=== PATIENT | male | born 1945 | race Caucasian/White ===

== ENCOUNTER 2019-10-18 11:27 | Emergency (ER) | payer BC, MEDICARE ==
[~2019-10-18] VITALS: Ht 180 cm; Wt 127.0 kg
[2019-10-18] MEDS ORDERED: LIDOCAINE/EPI 2% 1:100,00 (XYLOCAINE) 20 ML VIAL ONE (11:35)
[2019-10-18] MEDS ORDERED: oxyCODONE/APAP 5/325MG (PERCOCET 5) TABLET PO ONE (11:45)
[2019-10-18] MEDS ORDERED: TETANUS,DIPTH,PERTUSS P/F (BOOSTRIX) 0.5 ML VIAL IM ONE (11:45)
--- NOTE | 2019-10-18 11:53 | ED Upper Extremity ---
General Chief Complaint: Laceration Stated Complaint: SEVERED FINGERS Nursing Triage Note: PT CUT HIS RIGHT 2ND AND 3RD TIPS OF HIS FINGERS ON A BAND SAW. FINGERS ARE STILL INTACT AND BLEEDING CONTROLLED. Nursing Sepsis Screen: No Definite Risk History of Present Illness Date Seen by Provider: Oct 18, 2019 Time Seen by Provider: 11:48 Initial Comments Patient presenting to emergency department for evaluation of index and middle right hand finger injury status post cutting himself with a bandsaw blade. He was doing some woodwork trying to rounds of edges when his fingers actually got too close to the blade. His tetanus status is unclear so was updated today. He says he has some numbness to his index finger but no weakness. He says that he is healthy except for history of hypertension but no diabetes or smoking history or vascular disease history. He is uncomfortable but nontoxic with normal vital signs. Allergies and Home Medications Allergies Coded Allergies: iodine (Verified Allergy, Severe, Anaphylaxis, 10/18/19) niacin (Verified Allergy, Unknown, 10/18/19) Uncoded Allergies: NSAIDS (Allergy, Severe, Anaphylaxis, 10/18/19) Home Medications Cephalexin 500 Mg Capsule, 500 MG PO TID Prescribed by: ERUM GUERRERO on 10/18/19 1248 Hydrocodone/Acetaminophen 1 Each Tablet, 1 TAB PO Q4-6HR Prescribed by: ERUM GUERRERO on 10/18/19 1248 Patient Home Medication List Home Medication List Reviewed: Yes Review of Systems Constitutional: no symptoms reported EENTM: no symptoms reported Respiratory: no symptoms reported Cardiovascular: no symptoms reported Gastrointestinal: no symptoms reported Musculoskeletal: joint pain Skin: other (lacerations) Psychiatric/Neurological: Numbness All Other Systems Reviewed Negative Unless Noted: Yes Past Lvsicro-Mqxpbm-Brrhyw Hx Patient Social History Alcohol Use: Occasionally Uses Recreational Drug Use: No Smoking Status: Never a Smoker 2nd Hand Smoke Exposure: No Recent Foreign Travel: No Contact w/Someone Who Travel: No Recent Infectious Disease Expo: No Recent Hopitalizations: No Physical Abuse: No Sexual Abuse: No Mistreated: No Fear: No Immunizations Up To Date Tetanus Booster (TDap): Unknown Seasonal Allergies Seasonal Allergies: No Past Medical History Surgeries: Yes (HIPS BILAT, RIB BIOPSY, CYSTS REMOVED FROM SHOULDER, LITHOTRIPSY) Orthopedic Respiratory: No Cardiac: Yes Hypertension Neurological: No Genitourinary: Yes Prostate Problems Gastrointestinal: Yes Gastroesophageal Reflux Musculoskeletal: Yes Arthritis Endocrine: No HEENT: No Cancer: No Psychosocial: No Blood Disorders: No Physical Exam Vital Signs Vital Signs - First Documented 10/18/19 11:39 Temp 35.7 Pulse 62 Resp 18 B/P (MAP) 95/ Pulse Ox 99 O2 Delivery Room Air Capillary Refill : Less Than 3 Seconds Height, Weight, BMI Height: '" Weight: lbs. oz. kg; 39.00 BMI Method: General Appearance: WD/WN Neck: supple Cardiovascular: regular rate, rhythm Respiratory: no respiratory distress Hand: laceration (to tip of both index fingers) Neurologic/Tendon: normal tendon functions, sensory deficit (R index finger) Skin: warm/dry Procedures/Interventions Wound Location: Upper Extremities Other Wound Location index and middle fingers on R. Total wound length 4cm Index finger appx 1.5 cm. Small amount of debris, wound is linear goes below nail. Middle finger appx 2.5cm. Large amount of debris, wound is linear and and deeper and goes below nail as well Wound Length (cm): 4 Wound's Depth, Shape: linear, flap, sub Q Wound Explored: wound irrigated and picked out as much debris as I could find. Wound scrubbed as well Irrigated w/ Saline (ccs): 1000 Betadine Prep?: No (chlorohexidine) Anesthesia: Lidocaine w/ Epi (digital block on both digits. Total of 6 ccs used) Wound Debrided: extensive Suture: Ethlion (4-0) Suture Size: 4-0 Other Closure Supply: Wound Adhesive (small amount of wound adhesive close to nail on index finger) Number of Sutures: 9 Layer Closure?: 1 Number Deep Layer Sutures: 0 Sterile Dressing Applied?: Yes Progress Wound prepped and draped in normal sterile fashion and approximate 6 cc of lidocaine with epinephrine used to anesthetize both index and middle fingers. Wound was extensively irrigated and scrubbed and there was a large amount of debris and foreign tissue contamination and I removed as much as I possibly could find. It did not appear to go down to bone or tendon and he had 5 out of 5 strength in finger flexion and extension with both fingers. Wound was closed with sutures loosely so that he could still drain. No complications noted. Progress/Results/Core Measures Results/Orders My Orders Orders - ERUM GUERRERO DO Oxycodone/Apap 5/325mg Tablet (Percocet (10/18/19 11:45) Dipht,Pertuss(Acell),Tet Adult (Boostrix (10/18/19 11:45) Hand 3 View Right (10/18/19 11:37) Lidocaine/Epi 2% 1:100,000 (Xylocaine/Ep (10/18/19 11:35) Medications Given in ED Current Medications Medications Dose Ordered Sig/Nicki Route Start Time Stop Time Status Last Admin Dose Admin Diphtheria/ Tetanus/Acell Pertussis 0.5 ml ONCE ONCE IM 10/18/19 11:45 10/18/19 11:46 DC 10/18/19 11:51 0.5 ML Lidocaine/ Epinephrine 20 ml STK-MED ONCE .ROUTE 10/18/19 11:35 10/18/19 11:38 DC 10/18/19 11:50 20 ML Oxycodone/ Acetaminophen 2 tab ONCE ONCE PO 10/18/19 11:45 10/18/19 11:46 DC 10/18/19 11:51 2 TAB Vital Signs/I&O 10/18/19 11:39 Temp 35.7 Pulse 62 Resp 18 B/P (MAP) 95/ Pulse Ox 99 O2 Delivery Room Air Progress Progress Note : Progress Note 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 Told to follow with his doctor within 2-3 days for recheck and the sutures can come out in about 5-7 days. I told him he can come back here at any time as well as he has any concerns. Patient aware and agreeable with plan for discharge and verbalized understanding of the need for short-term follow-up and strict ED return precautions discussed including worsening pain fevers signs of infection or other general concerns. Departure Impression Primary Impression: Finger laceration with complication Qualified Codes: S61.219A - Laceration without foreign body of unspecified finger without damage to nail, initial encounter Disposition: 01 HOME, SELF-CARE Condition: Stable Departure-Patient Inst. Referrals: RADHA JONES MD (PCP/Family) Primary Care Physician Patient Instructions: Laceration Repair With Stitches (DC) Scripts Hydrocodone/Acetaminophen ([place] 5-325 Tablet) 1 Each Tablet 1 TAB PO Q4-6HR for Pain MDD 10 TABS for 7 Days, #10 TAB Prov: ERUM GUERRERO DO 10/18/19 Cephalexin (Keflex) 500 Mg Capsule 500 MG PO TID for 7 Days, #21 CAP Prov: ERUM GUERRERO DO 10/18/19 ERUM GUERRERO DO Oct 18, 2019 11:53 POS
--- NOTE | 2019-10-18 12:15 | Diagnostic Imaging Report ---
EXAMINATION: Right hand radiographs, 3 views. COMPARISON: None. HISTORY: 73-year-old male, injury on saw. FINDINGS: There are high attenuation probable foreign bodies projecting in the webspace between the first and second metacarpophalangeal joints. These are of uncertain exact age. Recommend correlation. No additional radiopaque foreign body is identified. There is no identified acute fracture. There is no subluxation or dislocation. 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 There are very mild additional interphalangeal degenerative changes. There is no bone erosion. IMPRESSION: 1. Multiple radiopaque foreign bodies in the webspace between the first and second digits of uncertain exact age. Recommend correlation. 2. No identified acute osseous abnormality. Dictated by: Dictated on workstation # [id number]
[2019-10-18] MEDS ORDERED: CEPH-507 PO (12:48)
[2019-10-18] MEDS ORDERED: HYDR-4226 PO (12:48)
[2019-10-18 12:57] VITALS: BP 140/62
== END 2019-10-18 12:55 | disposition home or self-care (01) ==
LOC: ER FS 11:29
DX: S61.310A Laceration without foreign body of right index finger with damage to nail, initial encounter (principal); S61.312A Laceration without foreign body of right middle finger with damage to nail, initial encounter; I10 Essential (primary) hypertension; K21.9 Gastro-esophageal reflux disease without esophagitis; Z23 Encounter for immunization; W31.2XXA Contact with powered woodworking and forming machines, initial encounter
CPT/HCPCS: 73130; 90471; 90715

== ENCOUNTER → 2019-11-30 | Outpatient (CLI) | payer BC, MEDICARE ==
[~2019-11-30] MED LIST: CEPH-507 PO; HYDR-4226 PO
--- NOTE | 2019-11-30 13:25 | Diagnostic Imaging Report ---
HISTORY: Chronic back pain. TECHNIQUE: Two views of the thoracic spine. COMPARISON: None FINDINGS: There are mild degenerative changes in the lower thoracic spine. Alignment is normal. Vertebral body heights are preserved. No acute fracture is seen. IMPRESSION: 1. Mild degenerative changes in the lower thoracic spine with no acute osseous abnormality seen. Dictated by: Dictated on workstation # [id number]
--- NOTE | 2019-11-30 13:26 | Diagnostic Imaging Report ---
INDICATION: Chronic left shoulder pain. FINDINGS: Two views of the left shoulder show no fracture, dislocation, or other acute abnormalities. There is mild degenerative change of the acromioclavicular joint. IMPRESSION: Mild degenerative changes of the left acromioclavicular joint. No acute abnormalities seen. Dictated by: Dictated on workstation # [id number]
--- NOTE | 2019-11-30 13:48 | Diagnostic Imaging Report ---
INDICATION: Neck pain. EXAMINATION: Cervical spine. TECHNIQUE: AP and lateral views of the cervical spine were obtained. FINDINGS: The odontoid is intact. The atlantoaxial relationship is normal. The vertebral body alignment is normal. There is some spondylosis with osteophytes forming anteriorly at C3-C4, C4-C5, and C5-C6. There is slight disc space narrowing at C5-C6. There is no fracture or prevertebral soft tissue swelling. IMPRESSION: There are some degenerative changes present in the cervical spine but no acute abnormality is seen. Dictated by: Dictated on workstation # [id number]
== END ==
LOC: RAD FS 11:15
PROVIDERS: ATTEND Nurse Practitioner
DX: M19.012 Primary osteoarthritis, left shoulder (principal); M47.814 Spondylosis without myelopathy or radiculopathy, thoracic region; M47.812 Spondylosis without myelopathy or radiculopathy, cervical region; M48.061 Spinal stenosis, lumbar region without neurogenic claudication
CPT/HCPCS: 72050; 72070; 73030

== ENCOUNTER → 2020-01-05 | Outpatient (CLI) | payer BC, MEDICARE | LOC: RAD 12:06 | PROVIDERS: ATTEND Nurse Practitioner | DX: M48.061 Spinal stenosis, lumbar region without neurogenic claudication (principal); M25.512 Pain in left shoulder; R20.2 Paresthesia of skin; Z53.9 Procedure and treatment not carried out, unspecified reason ==

== ENCOUNTER → 2020-06-11 | Outpatient (CLI) | payer BC, MEDICARE ==
--- NOTE | 2020-06-11 12:14 | Diagnostic Imaging Report ---
INDICATION: Right hip pain. TIME OF EXAM: 11:51 AM 3 views of the right hip were obtained. 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 Prosthetic elements are in good position. No fracture or loosening is identified. IMPRESSION: No acute abnormality is detected. Dictated by: Dictated on workstation # [id number]
== END ==
LOC: RAD FS 11:41
PROVIDERS: ATTEND Family Medicine
DX: M16.11 Unilateral primary osteoarthritis, right hip (principal)
CPT/HCPCS: 73502

== ENCOUNTER → 2020-10-10 | Outpatient (CLI) | payer MEDICARE, BC ==
[2020-10-10 09:13] LABS: CARBON DIOXIDE 29 MMOL/L (21-32); CHLORIDE 99 MMOL/L (98-107); POTASSIUM 4.4 MMOL/L (3.6-5.0); SODIUM 137 MMOL/L (135-145)
[2020-10-10 09:14] LABS: ALANINE AMINOTRANSFERASE 31 U/L (0-55); ALBUMIN 4.5 GM/DL (3.2-4.5); ALKALINE PHOSPHATASE 59 U/L (40-136); BILIRUBIN,TOTAL 0.6 MG/DL (0.1-1.0); BUN/CREATININE RATIO 13; CALCIUM 9.7 MG/DL (8.5-10.1); CREATININE SERUM 1.14 MG/DL (0.60-1.30); GFR ESTIMATED > 60; GLUCOSE 104 MG/DL (70-105); TOTAL PROTEIN 6.8 GM/DL (6.4-8.2)
[2020-10-10 14:43] LABS: CHOLESTEROL 132 MG/DL (< 200); HDL CHOLESTEROL 38 MG/DL (40-60); TRIGLYCERIDES 122 MG/DL (<150); VLDL CHOLESTEROL 24 MG/DL (5-40)
== END ==
LOC: LAB FS 08:07
PROVIDERS: ATTEND Family Medicine
DX: Z00.00 Encounter for general adult medical examination without abnormal findings (principal); Z12.5 Encounter for screening for malignant neoplasm of prostate; E78.5 Hyperlipidemia, unspecified
CPT/HCPCS: 80053; 80061; 84443; G0103; 36415; 84153

== ENCOUNTER → 2020-10-22 | Outpatient (CLI) | payer MEDICARE, BC ==
[2020-10-22 13:35] LABS: CLARITY,URINE SLIGHTLY CLOUDY; COLOR,URINE YELLOW; GLUCOSE, URINE (UA) NEGATIVE (NEGATIVE); PROTEIN,URINE NEGATIVE (NEGATIVE)
[2020-10-22 13:36] LABS: BACTERIA,URINE LARGE /HPF; BILIRUBIN,URINE NEGATIVE (NEGATIVE); KETONES,URINE NEGATIVE (NEGATIVE); LEUKOCYTE ESTERASE ,URINE NEGATIVE (NEGATIVE); NITRITE,URINE POSITIVE (NEGATIVE)
== END ==
LOC: LAB FS 13:07
PROVIDERS: ATTEND Family Medicine
DX: R35.0 Frequency of micturition (principal)
CPT/HCPCS: 81000; 87077; 87088; 87186

== ENCOUNTER → 2021-03-11 | Outpatient (CLI) | payer MEDICARE, BC ==
[2021-03-11 11:46] LABS: BASOPHILS % (AUTO) 1 % (0-10); EOSINOPHILS # (AUTO) 0.2 10^3/uL (0.0-0.3); EOSINOPHILS % (AUTO) 4 % (0-10); HEMATOCRIT 41 % (40-54); HEMOGLOBIN 14.3 G/DL (13.3-17.7); LYMPHOCYTES # (AUTO) 1.4 X 10^3 (1.0-4.0); LYMPHOCYTES % (AUTO) 28 % (12-44); MEAN CORPUSCULAR HEMOGLOBIN 31 PG (25-34); MEAN CORPUSCULAR HGB CONC 35 G/DL (32-36); MEAN CORPUSCULAR VOLUME 90 FL (80-99); MONOCYTES # (AUTO) 0.6 X 10^3 (0.0-1.0); MONOCYTES % (AUTO) 11 % (0-12); NEUTROPHILS # (AUTO) 2.8 X 10^3 (1.8-7.8); NEUTROPHILS % (AUTO) 57 % (42-75); PLATELET COUNT 261 10^3/uL (130-400)
[2021-03-11 12:33] LABS: ALANINE AMINOTRANSFERASE 31 U/L (0-55); ALBUMIN 4.4 GM/DL (3.2-4.5); ALKALINE PHOSPHATASE 56 U/L (40-136); BILIRUBIN,TOTAL 0.3 MG/DL (0.1-1.0); BUN/CREATININE RATIO 22; CALCIUM 9.4 MG/DL (8.5-10.1); CARBON DIOXIDE 26 MMOL/L (21-32); CHLORIDE 106 MMOL/L (98-107); CREATININE SERUM 0.85 MG/DL (0.60-1.30); GFR ESTIMATED > 60; GLUCOSE 94 MG/DL (70-105); POTASSIUM 4.4 MMOL/L (3.6-5.0); SODIUM 141 MMOL/L (135-145); TOTAL PROTEIN 6.8 GM/DL (6.4-8.2)
[2021-03-11 12:34] LABS: LIPASE 28 U/L (8-78)
== END ==
LOC: LAB FS 11:22
PROVIDERS: ATTEND Family Medicine
DX: R10.9 Unspecified abdominal pain (principal)
CPT/HCPCS: 36415; 80053; 83690; 85025

== ENCOUNTER 2021-03-22 10:36 | Emergency (ER) | payer MEDICARE, BC ==
[~2021-03-22] VITALS: Ht 180 cm; Wt 127.0 kg
[2021-03-22 10:51] VITALS: BP 143/72
--- NOTE | 2021-03-22 11:16 | ED Head Injury ---
General Chief Complaint: Trauma-Non Activation Stated Complaint: FALL; HEAD INJ/LAC Nursing Triage Note: see triage note Source: patient History of Present Illness Date Seen by Provider: March 22, 2021 Time Seen by Provider: 10:45 Initial Comments Patient is a 75-year-old male who presents with head injury and laceration to right lateral eyebrow and skin tear to right Stensen forearm. Injury occurred just prior to ED arrival. Patient was bending over planting when he fell forward striking his head. Denies loss of consciousness or feeling dazed. He has a superficial stellate laceration over the lateral aspect of his eyebrow. Patient has 3 x 8 cm skin tear over the mid extensor forearm. Skin is completely avulsed. The bleeding is controlled. Both wounds are clean. Patient is not on blood thinners. He denies headache midline neck pain. No other injury or pain related complaints. Last tetanus was updated 3 years ago. Patient denies medical symptoms prior to fall Occurred: just prior to arrival Severity: moderate Method of Injury: other Loss of Consciousness: no loss of consciousness Associated Systoms: Other Allergies and Home Medications Allergies Coded Allergies: iodine (Verified Allergy, Severe, Anaphylaxis, 10/18/19) niacin (Verified Allergy, Unknown, 10/18/19) Uncoded Allergies: NSAIDS (Allergy, Severe, Anaphylaxis, 10/18/19) Home Medications Cephalexin 500 Mg Capsule, 500 MG PO TID Prescribed by: ERUM GUERRERO on 10/18/19 1248 Hydrocodone/Acetaminophen 1 Each Tablet, 1 TAB PO Q4-6HR Prescribed by: ERUM GUERRERO on 10/18/19 1248 Patient Home Medication List Home Medication List Reviewed: Yes Review of Systems Review of Systems Constitutional: see HPI Eyes: See HPI Ears, Nose, Mouth, Throat: see HPI Respiratory: see HPI Cardiovascular: see HPI Gastrointestinal: see HPI Genitourinary: see HPI Musculoskeletal: see HPI Skin: see HPI Psychiatric/Neurological: See HPI Endocrine: See HPI Hematologic/Lymphatic: See HPI All Other Systems Reviewed Negative Unless Noted: Yes Past Ukrkgwm-Oewqyv-Xfxmaq Hx Past Med/Social Hx: Reviewed Nursing Past Med/Soc Hx Patient Social History Alcohol Use: Denies Use Smoking Status: Never a Smoker 2nd Hand Smoke Exposure: No Recent Infectious Disease Expo: No Recent Hopitalizations: No Immunizations Up To Date Tetanus Booster (TDap): Unknown Seasonal Allergies Seasonal Allergies: No Past Medical History Surgeries: Yes (HIPS BILAT, RIB BIOPSY, CYSTS REMOVED FROM SHOULDER, LITHOTRIPSY) Orthopedic Respiratory: No Cardiac: Yes Hypertension Neurological: No Genitourinary: Yes Prostate Problems Gastrointestinal: Yes Gastroesophageal Reflux Musculoskeletal: Yes Arthritis Endocrine: No HEENT: No Cancer: No Psychosocial: No Blood Disorders: No Physical Exam Vital Signs Vital Signs - First Documented 03/22/21 10:51 Temp 36.6 Pulse 63 Resp 18 B/P (MAP) 143/72 (95) Pulse Ox 94 O2 Delivery Room Air Capillary Refill : Less Than 3 Seconds Height, Weight, BMI Height: '" Weight: lbs. oz. kg; 39.00 BMI Method: General Appearance: WD/WN, no apparent distress HEENT: PERRL/EOMI, normal ENT inspection, pharynx normal, other (1 x 2 cm superficial stellate laceration involving lateral aspect of right eyebrow. Bleeding is controlled. No orbital or ocular involvement. No deformities bruising or swelling.) Neck: supple Cardiovascular: regular rate, rhythm, no murmur Respiratory: lungs clear Gastrointestinal: soft Back: normal inspection Extremities: normal range of motion, non-tender Psychiatric: alert, oriented x 3 Cra[place] Nerves: normal hearing, PERRL Motor/Sensory: no motor deficit, no sensory deficit Lymphatic: other (3 x 8 cm skin tear with avulsed tissue over the extensor surface of the right forearm. Bleeding is controlled. Wound is clean.) Procedures/Interventions Suture Size: 4-0 Progress/Results/Core Measures Results/Orders Vital Signs/I&O 03/22/21 10:51 Temp 36.6 Pulse 63 Resp 18 B/P (MAP) 143/72 (95) Pulse Ox 94 O2 Delivery Room Air Blood Pressure Mean: 95 Departure Communication (Admissions) Right eyebrow wound is cleansed and closed with wound adhesive. Right forearm skin clear, cleansed, debrided and covered with Vaseline gauze. Typical wound care instructions and injury instructions provided. Return precautions reviewed. Patient and spouse verbalized understanding agreement discharge instructions prior to departure. Impression Primary Impression: Facial laceration Additional Impressions: Minor head injury Skin tear of right forearm without complication Disposition: 01 HOME, SELF-CARE Condition: Stable Departure-Patient Inst. Decision time for Depature: 11:16 Referrals: RADHA JONES MD (PCP/Family) Primary Care Physician Patient Instructions: Minor Head Injury, Laceration Repair With Glue ED Add. Discharge Instructions: Please keep right forearm wound clean covered. Change bandages every 12-24 hours and more often as needed. Follow-up with José Miguel's PCP in 5 to 7 days for reevaluation. Return to the ED if new or concerning symptoms. All discharge instructions reviewed with patient and/or family. Voiced understanding. JESICA HOUSER DO March 22, 2021 11:16
== END 2021-03-22 11:25 | disposition home or self-care (01) ==
LOC: EDUNIT# 10:36 → ER FS 10:37
DX: S01.111A Laceration without foreign body of right eyelid and periocular area, initial encounter (principal); S51.811A Laceration without foreign body of right forearm, initial encounter; S09.90XA Unspecified injury of head, initial encounter; I10 Essential (primary) hypertension; Z88.6 Allergy status to analgesic agent; Z91.041 Radiographic dye allergy status; W22.8XXA Striking against or struck by other objects, initial encounter
CPT/HCPCS: 99282

== ENCOUNTER → 2021-06-26 | Outpatient (CLI) | payer MEDICARE, BC ==
[2021-06-26 08:55] LABS: CREATININE SERUM 0.91 MG/DL (0.60-1.30); POTASSIUM 4.5 MMOL/L (3.6-5.0)
[2021-06-26 08:56] LABS: ALBUMIN 4.3 GM/DL (3.2-4.5); BILIRUBIN,TOTAL 0.5 MG/DL (0.1-1.0); CALCIUM 9.8 MG/DL (8.5-10.1); TOTAL PROTEIN 6.8 GM/DL (6.4-8.2)
== END ==
LOC: LAB FS 08:12
PROVIDERS: ATTEND Family Medicine
DX: E78.5 Hyperlipidemia, unspecified (principal)
CPT/HCPCS: 36415; 80053; 80061

== ENCOUNTER → 2022-03-26 | Outpatient (CLI) | payer MEDICARE, BC ==
[2022-03-26 14:22] LABS: BASOPHILS # (AUTO) 0.1 10^3/uL (0.0-0.1); BASOPHILS % (AUTO) 1 % (0-10); EOSINOPHILS # (AUTO) 0.2 10^3/uL (0.0-0.3); EOSINOPHILS % (AUTO) 3 % (0-10); HEMATOCRIT 40 % (40-54); HEMOGLOBIN 14.3 g/dL (13.3-17.7); LYMPHOCYTES # (AUTO) 1.4 10^3/uL (1.0-4.0); LYMPHOCYTES % (AUTO) 25 % (12-44); MEAN CORPUSCULAR HEMOGLOBIN 31 pg (25-34); MEAN CORPUSCULAR HGB CONC 36 g/dL (32-36); MEAN CORPUSCULAR VOLUME 88 fL (80-99); MEAN PLATELET VOLUME 8.7 fL (9.0-12.2); MONOCYTES # (AUTO) 0.6 10^3/uL (0.0-1.0); MONOCYTES % (AUTO) 10 % (0-12); NEUTROPHILS # (AUTO) 3.6 10^3/uL (1.8-7.8); NEUTROPHILS % (AUTO) 62 % (42-75); PLATELET COUNT 224 10^3/uL (130-400); WHITE BLOOD COUNT 5.9 10^3/uL (4.3-11.0)
== END ==
LOC: LAB FS 14:02
PROVIDERS: ATTEND Registered Nurse Emergency
DX: N39.0 Urinary tract infection, site not specified (principal); N41.9 Inflammatory disease of prostate, unspecified
CPT/HCPCS: 36415; 84153; 85025

== ENCOUNTER → 2022-03-26 | Outpatient (CLI) | payer MEDICARE, BC | LOC: LABNPT 15:00 | PROVIDERS: ATTEND Family Medicine | DX: N39.0 Urinary tract infection, site not specified (principal) | CPT/HCPCS: 87088 ==

== ENCOUNTER → 2022-06-18 | Outpatient (CLI) | payer MEDICARE, BC ==
[2022-06-18 09:48] LABS: ALKALINE PHOSPHATASE 62 U/L (40-136); BILIRUBIN,TOTAL 0.5 MG/DL (0.1-1.0); BUN/CREATININE RATIO 19; CALCIUM 9.7 MG/DL (8.5-10.1); CARBON DIOXIDE 28 MMOL/L (21-32); CHLORIDE 103 MMOL/L (98-107); CREATININE SERUM 0.88 MG/DL (0.60-1.30); GFR ESTIMATED 90; GLUCOSE 102 MG/DL (70-105); POTASSIUM 4.5 MMOL/L (3.6-5.0); SODIUM 140 MMOL/L (135-145)
[2022-06-18 09:49] LABS: ALANINE AMINOTRANSFERASE 35 U/L (0-55); ALBUMIN 4.6 GM/DL (3.2-4.5); TOTAL PROTEIN 7.1 GM/DL (6.4-8.2)
[2022-06-18 14:52] LABS: CHOLESTEROL 161 MG/DL (< 200); HDL CHOLESTEROL 39 MG/DL (40-60); TRIGLYCERIDES 164 MG/DL (<150); VLDL CHOLESTEROL 33 MG/DL (5-40)
== END ==
LOC: LAB FS 08:07
PROVIDERS: ATTEND Family Medicine
DX: I10 Essential (primary) hypertension (principal)
CPT/HCPCS: 36415; 80053; 80061

== ENCOUNTER 2022-07-07 10:58 | Emergency (ER) | payer MEDICARE, BC ==
[~2022-07-07] VITALS: Ht 180.3 cm; Wt 127.0 kg
[2022-07-07 11:10] VITALS: BP 177/81
[2022-07-07 11:31] LABS: BILIRUBIN,URINE NEGATIVE (NEGATIVE); CLARITY,URINE CLOUDY; COLOR,URINE YELLOW; GLUCOSE, URINE (UA) NEGATIVE (NEGATIVE); KETONES,URINE NEGATIVE (NEGATIVE); LEUKOCYTE ESTERASE ,URINE TRACE (NEGATIVE); NITRITE,URINE NEGATIVE (NEGATIVE); PROTEIN,URINE NEGATIVE (NEGATIVE)
[2022-07-07 11:40] LABS: BACTERIA,URINE NEGATIVE /HPF; RBC,URINE >100 /HPF; WBC,URINE 0-2 /HPF
[2022-07-07] MEDS ORDERED: fentaNYL INJ 100 MCG/2 ML AMP IVP ONE (11:45)
[2022-07-07 11:55] LABS: BASOPHILS # (AUTO) 0.1 10^3/uL (0.0-0.1); BASOPHILS % (AUTO) 1 % (0-10); EOSINOPHILS # (AUTO) 0.2 10^3/uL (0.0-0.3); EOSINOPHILS % (AUTO) 3 % (0-10); HEMATOCRIT 39 % (40-54); HEMOGLOBIN 13.7 g/dL (13.3-17.7); LYMPHOCYTES # (AUTO) 1.3 10^3/uL (1.0-4.0); LYMPHOCYTES % (AUTO) 26 % (12-44); MEAN CORPUSCULAR HEMOGLOBIN 31 pg (25-34); MEAN CORPUSCULAR HGB CONC 36 g/dL (32-36); MEAN CORPUSCULAR VOLUME 87 fL (80-99); MEAN PLATELET VOLUME 8.6 fL (9.0-12.2); MONOCYTES # (AUTO) 0.6 10^3/uL (0.0-1.0); MONOCYTES % (AUTO) 11 % (0-12); NEUTROPHILS % (AUTO) 59 % (42-75); PLATELET COUNT 205 10^3/uL (130-400); WHITE BLOOD COUNT 5.1 10^3/uL (4.3-11.0)
[2022-07-07 12:14] LABS: ALBUMIN 4.3 GM/DL (3.2-4.5); BILIRUBIN,TOTAL 0.5 MG/DL (0.1-1.0); CALCIUM 9.8 MG/DL (8.5-10.1); CREATININE SERUM 0.99 MG/DL (0.60-1.30); POTASSIUM 4.5 MMOL/L (3.6-5.0); TOTAL PROTEIN 6.5 GM/DL (6.4-8.2)
[2022-07-07] MEDS ORDERED: morphine INJ 10 MG/ML 1ML (SYR OR VIAL) IVP STA (12:32)
[2022-07-07] MEDS ORDERED: NS IV 1000 ML 1,000 ML IV SCH (12:45)
--- NOTE | 2022-07-07 13:15 | Diagnostic Imaging Report ---
PROCEDURE: CT abdomen and pelvis without contrast. TECHNIQUE: Multiple contiguous axial images were obtained through the abdomen and pelvis without the use of intravenous contrast. Auto Exposure Controls were utilized during the CT exam to meet ALARA standards for radiation dose reduction. INDICATION: Left-sided abdominal pain. COMPARISON: None. FINDINGS: The heart is mildly prominent. Small amount of dependent atelectasis is seen in the right lung base. A calculus is seen in the distal left ureter measuring 0.7 cm with moderate left-sided hydroureteronephrosis. 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 Bilateral nonobstructing renal calculi are seen measuring up to 0.5 cm on the right and 0.6 cm on the left. No hydronephrosis on the right. The urinary bladder is decompressed. There is cholelithiasis. No CT evidence of acute cholecystitis. The liver, spleen, pancreas, and adrenal glands have a normal noncontrast CT appearance. There is no pathologically enlarged mesenteric or retroperitoneal adenopathy. LAP-BAND is noted. The bowel loops are nondilated. The appendix is visualized in the right lower quadrant and has a normal appearance. There is no free fluid or free air. No acute osseous abnormalities. 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 There is calcified aortic and iliac atherosclerotic plaque without aneurysm. There is no free air, loculated collection, or adenopathy in the pelvis. IMPRESSION: 1. Obstructing calculus in the distal left ureter measuring 0.7 cm with moderate left-sided hydroureteronephrosis. 2. Bilateral nonobstructing calculi. 3. Cholelithiasis without CT evidence of acute cholecystitis. Dictated by: Dictated on workstation # [id number]
--- NOTE | 2022-07-07 13:48 | ED Abdominal Pain ---
General Chief Complaint: Back Problems Stated Complaint: BACK PAIN Nursing Triage Note: PT AMBULATE TO ROOM FS01 WITH C/O LEFT FLANK/LEFT GROIN PAIN. PT STATES IT FEELS LIKE A KIDNEY STONE. PT REPORTS HX OF KIDNEY STONES. Source of Information: Patient Exam Limitations: No Limitations History of Present Illness Date Seen by Provider: Jul 07, 2022 Time Seen by Provider: 11:16 Initial Comments This 76 year old gentleman presents to the ER via private vehicle with left flank pain now radiating down into the left groin. He has history of ureteral stones and states this feels similar. Symptoms started about 2 days ago. Symptoms were more severe on Thursday, better Thursday, and now more severe again today. Urine has been dark. States he was treated with cipro for possible UTI and penile pain in April as well. Dr. Carlos Barajas in [place] and [place] is his urologist. Dr. Jones is his PCP. Allergies and Home Medications Allergies Coded Allergies: iodine (Verified Allergy, Severe, Anaphylaxis, 10/18/19) niacin (Verified Allergy, Unknown, 10/18/19) Uncoded Allergies: NSAIDS (Allergy, Severe, Anaphylaxis, 10/18/19) Patient Home Medication List Home Medication List Reviewed: Yes Cephalexin (Keflex) 500 Mg Capsule, 500 MG PO TID Prescribed by: ERUM GUERRERO on 10/18/19 1248 Cephalexin (Cephalexin) 500 Mg Tablet, 500 MG PO TID Prescribed by: MYA PARKER on 07/07/22 1358 Hydrocodone/Acetaminophen (Hydrocodone/Acetaminophen 5 MG/325 MG TAB) 1 Each Tablet, 1 TAB PO Q4-6HR Prescribed by: ERUM GUERRERO on 10/18/19 1248 Ondansetron (Ondansetron Odt) 4 Mg Tab.rapdis, 4 MG SL Q4H PRN for NAUSEA/VOMITING Prescribed by: MYA PARKER on 07/07/22 1358 Oxycodone HCl/Acetaminophen (Percocet 5-325 mg Tablet) 1 Each Tablet, 1-2 TAB PO Q4H PRN for PAIN-MODERATE (5-7) Prescribed by: MYA PARKER on 07/07/22 1358 Review of Systems Review of Systems Constitutional: no symptoms reported EENTM: No Symptoms Reported Respiratory: No Symptoms Reported Cardiovascular: No Symptoms Reported Gastrointestinal: See HPI Genitourinary: See HPI Musculoskeletal: no symptoms reported Skin: no symptoms reported Psychiatric/Neurological: No Symptoms Reported Endocrine: No Symptoms Reported Past Qudwwqa-Stjnas-Pniunl Hx Patient Social History Tobacco Use?: No Smoking Status: Never a Smoker Smokeless Tobacco Frequency: Never a User Use of E-Cig and/or Vaping dev: No Use of E-Cig and/or Vaping Sundar: Never a User Substance use?: No Alcohol Use?: Yes Pt feels they are or have been: No Immunizations Up To Date Tetanus Booster (TDap): Unknown COVID19 Vaccine [employer]: MODERNA Seasonal Allergies Seasonal Allergies: No Past Medical History Surgeries: Yes (HIPS BILAT, RIB BIOPSY, CYSTS REMOVED FROM SHOULDER, LITHOTRIPSY) Abdominal (Lap band), Orthopedic, Renal Respiratory: No Cardiac: Yes Hypertension Neurological: No Genitourinary: Yes Prostate Problems Gastrointestinal: Yes Gastroesophageal Reflux Musculoskeletal: Yes Arthritis Endocrine: No HEENT: No Cancer: No Psychosocial: No Blood Disorders: No Physical Exam Vital Signs Vital Signs - First Documented 07/07/22 11:10 Temp 35.8 Pulse 64 Resp 18 B/P (MAP) 177/81 (113) O2 Delivery Room Air Capillary Refill : Less Than 3 Seconds Height/Weight/BMI Height: '" Weight: lbs. oz. kg; 39.00 BMI Method: General Appearance: WD/WN, no apparent distress HEENT: PERRL/EOMI, normal ENT inspection Neck: normal inspection Respiratory: lungs clear, normal breath sounds, no respiratory distress Cardiovascular: regular rate, rhythm, no edema, no murmur Gastrointestinal: normal bowel sounds, soft; No distended; tenderness (Left sided) Extremities: normal inspection, no pedal edema Neurologic/Psychiatric: no motor/sensory deficits, alert, normal mood/affect, oriented x 3 Skin: normal color, warm/dry Procedures/Interventions Suture Size: 4-0 Progress/Results/Core Measures Results/Orders Lab Results Laboratory Tests Test 07/07/22 11:20 07/07/22 11:47 Range/Units Urine Color YELLOW Urine Clarity CLOUDY Urine pH 6.0 5-9 Urine Specific [place] 1.010 L 1.016-1.022 Urine Protein NEGATIVE NEGATIVE Urine Glucose (UA) NEGATIVE NEGATIVE Urine Ketones NEGATIVE NEGATIVE Urine Nitrite NEGATIVE NEGATIVE Urine Bilirubin NEGATIVE NEGATIVE Urine Urobilinogen 0.2 < = 1.0 MG/DL Urine Leukocyte Esterase TRACE H NEGATIVE Urine RBC (Auto) 3+ H NEGATIVE Urine RBC >100 H /HPF Urine WBC 0-2 /HPF Urine Squamous Epithelial Cells NONE /HPF Urine Crystals NONE /LPF Urine Bacteria NEGATIVE /HPF Urine Casts NONE /LPF Urine Mucus NEGATIVE /LPF Urine Culture Indicated NO White Blood Count 5.1 4.3-11.0 10^3/uL Red Blood Count 4.43 4.30-5.52 10^6/uL Hemoglobin 13.7 13.3-17.7 g/dL Hematocrit 39 L 40-54 % Mean Corpuscular Volume 87 80-99 fL Mean Corpuscular Hemoglobin 31 25-34 pg Mean Corpuscular Hemoglobin Concent 36 32-36 g/dL Red Cell Distribution Width 12.3 10.0-14.5 % Platelet Count 205 130-400 10^3/uL Mean Platelet Volume 8.6 L 9.0-12.2 fL Immature Granulocyte % (Auto) 0 % Neutrophils (%) (Auto) 59 42-75 % Lymphocytes (%) (Auto) 26 12-44 % Monocytes (%) (Auto) 11 0-12 % Eosinophils (%) (Auto) 3 0-10 % Basophils (%) (Auto) 1 0-10 % Neutrophils # (Auto) 3.0 1.8-7.8 10^3/uL Lymphocytes # (Auto) 1.3 1.0-4.0 10^3/uL Monocytes # (Auto) 0.6 0.0-1.0 10^3/uL Eosinophils # (Auto) 0.2 0.0-0.3 10^3/uL Basophils # (Auto) 0.1 0.0-0.1 10^3/uL Immature Granulocyte # (Auto) 0.0 0.0-0.1 10^3/uL Sodium Level 137 135-145 MMOL/L Potassium Level 4.5 3.6-5.0 MMOL/L Chloride Level 101 98-107 MMOL/L Carbon Dioxide Level 27 21-32 MMOL/L Anion Gap 9 5-14 MMOL/L Blood Urea Nitrogen 16 7-18 MG/DL Creatinine 0.99 0.60-1.30 MG/DL Estimat Glomerular Filtration Rate 79 BUN/Creatinine Ratio 16 Glucose Level 95 70-105 MG/DL Calcium Level 9.8 8.5-10.1 MG/DL Corrected Calcium 9.6 8.5-10.1 MG/DL Total Bilirubin 0.5 0.1-1.0 MG/DL Aspartate Amino Transf (AST/SGOT) 24 5-34 U/L Alanine Aminotransferase (ALT/SGPT) 29 0-55 U/L Alkaline Phosphatase 59 40-136 U/L Total Protein 6.5 6.4-8.2 GM/DL Albumin 4.3 3.2-4.5 GM/DL Lipase 23 8-78 U/L My Orders Orders - MYA BASS MD Ua Culture If Indicated (07/07/22 11:16) Cbc With Automated Diff (07/07/22 11:35) Comprehensive Metabolic Panel (07/07/22 11:35) Lipase (07/07/22 11:35) Ed Iv/Invasive Line Start (07/07/22 11:35) Fentanyl Inj (Sublimaze Injection) (07/07/22 11:45) Morphine Injection (Morphine Injection (07/07/22 12:32) Ns Iv 1000 Ml (Sodium Chloride 0.9%) (07/07/22 12:45) Ct Abdomen/Pelvis Wo (07/07/22 12:32) Oxycodone/Apap 5/325mg Tablet (Percocet (07/07/22 14:00) Medications Given in ED Vital Signs/I&O 07/07/22 11:10 Temp 35.8 Pulse 64 Resp 18 B/P (MAP) 177/81 (113) O2 Delivery Room Air Blood Pressure Mean: 113 Progress Progress Note : Progress Note Patient was treated with Fentanyl and Morphine. Percocet was given before discharge. Distal left ureteral stone with significant hydronephrosis was identified by CT. Follow-up appt was arrange with Dr. Barajas. See discharge instructions for further discussion. Diagnostic Imaging Diagonstic Imaging: CT Plain Films/CT/US/NM/MRI: abdomen, pelvis Comments Viewed by me and report reviewed. See report below: NAME: LOREE RIOS [facility] REC#: [id number] PT STATUS: REG ER : 1945 PHYSICIAN: MYA BASS MD ADMIT DATE: 07/07/22/ER FS Signed Date of Exam:07/07/22 CT ABDOMEN/PELVIS WO PROCEDURE: CT abdomen and pelvis without contrast. TECHNIQUE: Multiple contiguous axial images were obtained through the abdomen and pelvis without the use of intravenous contrast. Auto Exposure Controls were utilized during the CT exam to meet ALARA standards for radiation dose reduction. INDICATION: Left-sided abdominal pain. COMPARISON: None. FINDINGS: The heart is mildly prominent. Small amount of dependent atelectasis is seen in the right lung base. A calculus is seen in the distal left ureter measuring 0.7 cm with moderate left-sided hydroureteronephrosis. 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 Bilateral nonobstructing renal calculi are seen measuring up to 0.5 cm on the right and 0.6 cm on the left. No hydronephrosis on the right. The urinary bladder is decompressed. There is cholelithiasis. No CT evidence of acute cholecystitis. The liver, spleen, pancreas, and adrenal glands have a normal noncontrast CT appearance. There is no pathologically enlarged mesenteric or retroperitoneal adenopathy. LAP-BAND is noted. The bowel loops are nondilated. The appendix is visualized in the right lower quadrant and has a normal appearance. There is no free fluid or free air. No acute osseous abnormalities. 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 There is calcified aortic and iliac atherosclerotic plaque without aneurysm. There is no free air, loculated collection, or adenopathy in the pelvis. IMPRESSION: 1. Obstructing calculus in the distal left ureter measuring 0.7 cm with moderate left-sided hydroureteronephrosis. 2. Bilateral nonobstructing calculi. 3. Cholelithiasis without CT evidence of acute cholecystitis. Dictated by: Dictated on workstation # [id number] Dict: 07/07/22 1258 Trans: 07/07/22 1340 [facility] [id number] Interpreted by: HALLE MESA DO Electronically signed by: HALLE MESA DO 07/07/22 1340 Departure Impression Primary Impression: Left ureteral stone Additional Impression: Hydronephrosis Qualified Codes: N13.2 - Hydronephrosis with renal and ureteral calculous obstruction Disposition: 01 HOME, SELF-CARE Condition: Improved Departure-Patient Inst. Decision time for Depature: 13:48 Referrals: RADHA JONES MD (PCP) Primary Care Physician Patient Instructions: Kidney Stones in Adults Add. Discharge Instructions: Drink plenty of clear liquids to stay well-hydrated. Strain your urine and bring any stones or fragments collected to your follow-up appointment. You may use Percocet as prescribed for pain. Please use Percocet with caution as it may cause drowsiness. Do not drive, operate machinery, or make important decisions while on this medication. Percocet may also cause constipation. You may wish to take a stool softener such as Colace while using Percocet. Use the Zofran (ondansetron) as prescribed for nausea and vomiting. Use Keflex as prescribed to prevent urinary tract infection. You have an appointment with Dr. Carlos Barajas in his [place] office on July 10 at 1:30 PM. Please call his office at [phone] to confirm the appointment time and supply any information they may need. In the meantime, return to the emergency room if you have uncontrolled symptoms despite following these instructions or if you develop new problems such as fever. All discharge instructions reviewed with patient and/or family. Voiced understanding. Scripts Oxycodone HCl/Acetaminophen (Percocet 5-325 mg Tablet) 1 Each Tablet 1-2 TAB PO Q4H PRN for PAIN-MODERATE (5-7) MDD 6 TABS, #20 TAB Prov: MYA BASS MD 07/07/22 Cephalexin (Cephalexin) 500 Mg Tablet 500 MG PO TID, #30 TAB Prov: MYA BASS MD 07/07/22 Ondansetron (Ondansetron Odt) 4 Mg Tab.rapdis 4 MG SL Q4H PRN for NAUSEA/VOMITING, #10 TAB Prov: MYA BASS MD 07/07/22 MYA BASS MD Jul 07, 2022 13:48
[2022-07-07] MEDS ORDERED: CEPH500T PO (13:58)
[2022-07-07] MEDS ORDERED: ONDA4TAB11 SL (13:58)
[2022-07-07] MEDS ORDERED: OXYC1TAB87 PO (13:58)
[2022-07-07] MEDS ORDERED: oxyCODONE/APAP 5/325MG (PERCOCET 5) TABLET PO ONE (14:00)
== END 2022-07-07 14:19 | disposition home or self-care (01) ==
LOC: EDUNIT# 10:58 → ER FS 11:00
DX: N13.2 Hydronephrosis with renal and ureteral calculous obstruction (principal); Z88.6 Allergy status to analgesic agent
CPT/HCPCS: 36415; 74176; 80053; 81000; 83690; 85025